=== PATIENT | female | born 1945 | race Caucasian/White ===

== ENCOUNTER 2018-01-05 12:12 | Observation (INO) ==
[2018-01-05 12:35] LABS: Apearance,Urine CLEAR (Clear); Bacteria,Urine Occasional /HPF (Few); Bilirubin,Urine Negative (Negative); Blood, Urine Negative (Negative); Glucose,Urine (UA) 150 mg/dL (Negative); Ketones,Urine 5 mg/dL (Negative); Nitrite,Urine Negative (Negative); Protein,Urine Negative; RBC,Urine <1 /HPF (0-4); Urine Color Yellow (Yellow); Urine Specific Gravity 1.014 (1.001-1.035); Urine Urobilinogen < 2.0 EU/DL (0.2-1.0); WBC,Urine <1 /HPF (0-6)
[2018-01-05 12:40] LABS: Basophils # 0.1 10*3/uL (0.0-0.2); Basophils % 1.3 % (0.0-0.8); Eosinophils # 0.2 10*3/uL (0.0-0.87); Hematocrit 39.2 VOL% (35.7-47.0); Immature Granulocytes % 0.6 %; Immature Granulocytes Absolute 0.03 #; Lymphocytes # 1.3 10*3/uL (1.4-4.0); Lymphocytes % 26.9 % (21.3-54.2); Mean Corpuscular HGB Conc 33.2 GM/DL (32-36); Mean Corpuscular Hemoglobin 29 PG (27-34); Mean Corpuscular Volume 86.3 FL (87-102); Monocytes # 0.3 10*3/uL (0.11-0.8); Monocytes % 6.5 % (1.7-12.7); Neutrophils # 2.9 10*3/uL (1.4-7.4); Neutrophils % 60.7 % (38.7-73.9); Platelet Count 174 T/CUMM (130-400); Red Blood Count 4.54 MC/CUMM (3.8-5.5); Red Cell Distribution Width 14.3 % (9.3-17.3); White Blood Count 4.8 T/CUMM (4-12)
[2018-01-05 12:49] LABS: PT Patient Result 10.9 SECS; Partial Thromboplastin Time 24.2 SECS (0-40)
[2018-01-05 12:53] LABS: Barbiturates Screen,Urine Negative (Negative); Benzodiazepines Screen,Urine Negative (Negative); Cannabinoid Screen,Urine Negative (Negative); Opiate Screen,Urine Negative (Negative); Phencyclidine Screen,Urine Negative (Negative)
[2018-01-05 13:04] LABS: Lactic Acid 3.4 MMOL/L (0.4-2.0)
[2018-01-05 13:10] LABS: Alanine Aminotransferase 36 U/L (13-56); Albumin 3.8 G/DL (3.4-5.0); Alkaline Phosphatase 56 U/L (45-117); Amylase 57 U/L (25-115); Aspartate Amino Transferase 27 U/L (0-37); Blood Urea Nitrogen 11 MG/DL (7-18); Calcium 8.9 MG/DL (8.5-10.1); Glucose 204 MG/DL (74-106); Osmolality,Calculated 281.5 MOS/KG (273-304); Potassium 4.2 MMOL/L (3.5-5.1); Sodium 139 MMOL/L (136-145); Total Protein 6.8 G/DL (6.4-8.3)
[2018-01-05] MEDS ORDERED: SODIUM CHLORIDE 0.9% 1,000 ML IV STA ×2 (13:31→14:28)
[2018-01-05] MEDS ORDERED: ORPHENADRINE 60 MG/2 ML VIAL IV STA (13:39)
[2018-01-05] MEDS ORDERED: ORPHENADRINE 60 MG/2 ML VIAL ONE (13:59)
[2018-01-05] MEDS ORDERED: MORPHINE 2 MG/1 ML SYRINGE IV STA (14:25)
[2018-01-05] MEDS ORDERED: diphenhydrAMINE 50 MG/1 ML VIAL IV STA (14:27)
[2018-01-05] MEDS ORDERED: diphenhydrAMINE 50 MG/1 ML VIAL ONE (14:37)
[2018-01-05] MEDS ORDERED: MORPHINE 4 MG/1 ML VIAL ONE (14:37)
[2018-01-05] MEDS ORDERED: DEXTROSE 50% 25 GM/50 ML VIAL IV PRN (19:18)
[2018-01-05] MEDS ORDERED: GLUCAGON 1 MG VIAL IM PRN (19:18)
[2018-01-05] MEDS ORDERED: ONDANSETRON 4 MG/2 ML VIAL IV PRN (19:33)
[2018-01-05] MEDS ORDERED: ENOXAPARIN 40 MG/0.4 ML SYRINGE SUBCUT SCH (20:00)
[2018-01-05] MEDS: INSULIN REGULAR 100 UNIT/ML SUBCUT SCH (22:31)
[2018-01-05] MEDS ORDERED: ONDANSETRON ODT 4 MG TABLET PO PRN (22:42)
[2018-01-05] MEDS ORDERED: OMEGA 3 ACID ETHYL ESTERS 1 GM CAPSULE PO SCH (23:00)
[2018-01-05] MEDS ORDERED: QUEtiapine 100 MG TABLET PO SCH (23:00)
[2018-01-05] MEDS ORDERED: ATORVASTATIN 80 MG TABLET PO SCH (23:00)
[2018-01-05] MEDS ORDERED: MIRTAZAPINE 15 MG TABLET PO SCH (23:00)
[2018-01-06] MEDS: INSULIN REGULAR 100 UNIT/ML SUBCUT SCH ×2 (08:19→11:25)
[2018-01-06] MEDS ORDERED: CLOPIDOGREL 75 MG TABLET PO SCH (09:00)
[2018-01-06] MEDS ORDERED: clonazePAM 0.5 MG TABLET PO SCH (09:00)
[2018-01-06] MEDS ORDERED: FLUoxetine 20 MG CAPSULE PO SCH (09:00)
[2018-01-06] MEDS ORDERED: LISINOPRIL 20 MG TABLET PO SCH (09:00)
[2018-01-06] MEDS ORDERED: CARVEDILOL 25 MG TABLET PO SCH (09:00)
[2018-01-06] MEDS ORDERED: ASPIRIN EC 81 MG TABLET PO SCH (09:00)
[2018-01-06 11:20] VITALS: BP 103/52
== END 2018-01-06 15:47 | disposition home or self-care (01) ==
LOC: EDUNIT# → EDBD → N.EDINP 12:12 → N.ED 12:12 → N.EDINP 21:03 → N.3E 21:09
PROVIDERS: ADMIT Family Medicine; ATTEND Family Medicine

== ENCOUNTER 2020-03-30 16:00 | Observation (INO) ==
[2020-03-30] MEDS ORDERED: SODIUM CHLORIDE 0.9% 500 ML IV STA (16:37)
[2020-03-30] MEDS ORDERED: fentaNYL 100 MCG/2 ML VIAL IV STA (16:37)
[2020-03-30] MEDS ORDERED: ONDANSETRON 4 MG/2 ML VIAL IV STA (16:37)
[2020-03-30 17:13] LABS: Basophils # 0.1 10*3/uL (0.0-0.2); Basophils % 1.1 % (0.0-0.8); Eosinophils # 0.3 10*3/uL (0.0-0.87); Eosinophils % 4.8 % (0.00-10.9); Hematocrit 34.3 VOL% (35.7-47.0); Hemoglobin 10.5 GM/DL (12.0-16.0); Immature Granulocytes % 0.4 %; Immature Granulocytes Absolute 0.03 #; Lymphocytes # 1.4 10*3/uL (1.4-4.0); Lymphocytes % 19.2 % (21.3-54.2); Mean Corpuscular HGB Conc 30.6 GM/DL (32-36); Mean Corpuscular Volume 86.4 FL (87-102); Mean Platelet Volume 9.3 FL (9.6-12.0); Monocytes % 8.1 % (1.7-12.7); Neutrophils % 66.4 % (38.7-73.9); Platelet Count 185 T/CUMM (130-400); Red Blood Count 3.97 MC/CUMM (3.8-5.5); Red Cell Distribution Width 15.8 % (9.3-17.3)
[2020-03-30 17:27] LABS: Partial Thromboplastin Time 26.7 SECS (23.9-33.8)
[2020-03-30 17:33] LABS: Apearance,Urine CLEAR (Clear); Bilirubin,Urine Negative (Negative); Blood, Urine Negative (Negative); Glucose,Urine (UA) Negative (Negative); Ketones,Urine Negative (Negative); Nitrite,Urine Negative (Negative); Protein,Urine Negative; RBC,Urine 4 /HPF (0-4); Squamous Epithelial Cell,Urine Occasional /HPF (0-10); Urine Color Yellow (Yellow); Urine Specific Gravity 1.011 (1.001-1.035); Urine Urobilinogen < 2.0 EU/DL (0.2-1.0); WBC,Urine 1 /HPF (0-6)
[2020-03-30 17:36] LABS: Albumin 3.4 G/DL (3.4-5.0); Bilirubin,Total 0.7 MG/DL (0.2-1.0); Calcium 8.4 MG/DL (8.5-10.1); Osmolality,Calculated 277.5 MOS/KG (273-304)
[2020-03-30] MEDS ORDERED: GLUCAGON 1 MG VIAL IM PRN (19:40)
[2020-03-30] MEDS ORDERED: DEXTROSE 50% 25 GM/50 ML VIAL IV PRN (19:40)
[2020-03-30] MEDS ORDERED: ONDANSETRON 4 MG/2 ML VIAL IV PRN (19:40)
[2020-03-30] MEDS: ATORVASTATIN 80 MG TABLET PO SCH (22:17)
[2020-03-30] MEDS: MIRTAZAPINE 15 MG TABLET PO SCH (22:17)
[2020-03-30] MEDS: clonazePAM 0.5 MG TABLET PO SCH (22:17)
[2020-03-30] MEDS: QUEtiapine 100 MG TABLET PO SCH (22:17)
[2020-03-30] MEDS: INSULIN REGULAR 100 UNIT/ML SUBCUT SCH (22:35)
[2020-03-30] MEDS: metFORMIN 500 MG TABLET PO SCH (22:35)
[2020-03-30] MEDS: INSULIN GLARGINE 100 UNIT/ML SUBCUT SCH (22:35)
[2020-03-30] MEDS: DEXTROSE 5% NACL 0.45% 1,000 ML IV SCH (22:36)
[2020-03-30] MEDS: fentaNYL 100 MCG/2 ML VIAL IV PRN (23:10)
[2020-03-31] MEDS: fentaNYL 100 MCG/2 ML VIAL IV PRN ×3 (04:14→18:42)
[2020-03-31] MEDS: INSULIN REGULAR 100 UNIT/ML SUBCUT SCH ×4 (09:08→21:42)
[2020-03-31] MEDS: buPROPion XL 150 MG TABLET PO SCH (09:12)
[2020-03-31] MEDS: metFORMIN 500 MG TABLET PO SCH ×2 (09:12→20:59)
[2020-03-31] MEDS: clonazePAM 0.5 MG TABLET PO SCH ×2 (09:12→21:00)
[2020-03-31] MEDS: CLOPIDOGREL 75 MG TABLET PO SCH (09:13)
[2020-03-31] MEDS: FLUoxetine 20 MG CAPSULE PO SCH (09:13)
[2020-03-31] MEDS: PANTOPRAZOLE 40 MG TABLET PO SCH (09:13)
[2020-03-31] MEDS ORDERED: ALBUTEROL/IPRATROPIUM 3 ML NEB RESP TX PRN (12:17)
[2020-03-31] MEDS: ALBUTEROL/IPRATROPIUM 3 ML NEB RESP TX SCH ×2 (12:52→18:57)
[2020-03-31] MEDS: GABAPENTIN 300 MG CAPSULE PO SCH ×2 (16:02→20:58)
[2020-03-31] MEDS: MAGNESIUM HYDROXIDE SUSP 30 ML UDCUP PO PRN (16:02)
[2020-03-31] MEDS: DEXTROSE 5% NACL 0.45% 1,000 ML IV SCH (17:10)
[2020-03-31] MEDS: ATORVASTATIN 80 MG TABLET PO SCH (20:58)
[2020-03-31] MEDS: MIRTAZAPINE 15 MG TABLET PO SCH (20:59)
[2020-03-31] MEDS: QUEtiapine 100 MG TABLET PO SCH (20:59)
[2020-03-31] MEDS: INSULIN GLARGINE 100 UNIT/ML SUBCUT SCH (21:00)
[2020-04-01] MEDS: ALBUTEROL/IPRATROPIUM 3 ML NEB RESP TX SCH ×4 (00:40→19:53)
[2020-04-01] MEDS: INSULIN REGULAR 100 UNIT/ML SUBCUT SCH ×4 (08:54→20:17)
[2020-04-01] MEDS: oxyCODONE/ACETAMINOPHEN 5-325 MG TABLET PO PRN ×2 (08:57→14:24)
[2020-04-01] MEDS: clonazePAM 0.5 MG TABLET PO SCH ×2 (08:58→20:28)
[2020-04-01] MEDS: metFORMIN 500 MG TABLET PO SCH ×2 (08:58→20:28)
[2020-04-01] MEDS: GABAPENTIN 300 MG CAPSULE PO SCH ×3 (08:58→20:28)
[2020-04-01] MEDS: buPROPion XL 150 MG TABLET PO SCH (08:59)
[2020-04-01] MEDS: CLOPIDOGREL 75 MG TABLET PO SCH (08:59)
[2020-04-01] MEDS: PANTOPRAZOLE 40 MG TABLET PO SCH (08:59)
[2020-04-01] MEDS: FLUoxetine 20 MG CAPSULE PO SCH (08:59)
[2020-04-01] MEDS: fentaNYL 100 MCG/2 ML VIAL IV PRN (18:50)
[2020-04-01] MEDS: INSULIN GLARGINE 100 UNIT/ML SUBCUT SCH (20:18)
[2020-04-01] MEDS: MIRTAZAPINE 15 MG TABLET PO SCH (20:28)
[2020-04-01] MEDS: ATORVASTATIN 80 MG TABLET PO SCH (20:28)
[2020-04-01] MEDS: QUEtiapine 100 MG TABLET PO SCH (20:28)
[2020-04-02] MEDS: ALBUTEROL/IPRATROPIUM 3 ML NEB RESP TX SCH ×3 (00:17→13:50)
[2020-04-02] MEDS: INSULIN REGULAR 100 UNIT/ML SUBCUT SCH ×2 (07:14→12:07)
[2020-04-02] MEDS: fentaNYL 100 MCG/2 ML VIAL IV PRN (08:20)
[2020-04-02] MEDS: metFORMIN 500 MG TABLET PO SCH (09:29)
[2020-04-02] MEDS: clonazePAM 0.5 MG TABLET PO SCH (09:29)
[2020-04-02] MEDS: GABAPENTIN 300 MG CAPSULE PO SCH (09:30)
[2020-04-02] MEDS: PANTOPRAZOLE 40 MG TABLET PO SCH (09:30)
[2020-04-02] MEDS: FLUoxetine 20 MG CAPSULE PO SCH (09:30)
[2020-04-02] MEDS: CLOPIDOGREL 75 MG TABLET PO SCH (09:30)
[2020-04-02] MEDS: buPROPion XL 150 MG TABLET PO SCH (09:31)
[2020-04-02] MEDS: MAGNESIUM HYDROXIDE SUSP 30 ML UDCUP PO PRN (12:07)
[2020-04-02] MEDS ORDERED: ASPIRIN CHEW 81 MG TABLET PO ONE (13:15)
[2020-04-02] MEDS ORDERED: NITROGLYCERIN SL 0.4 MG TABLET SL PRN (13:15)
[2020-04-02] MEDS: oxyCODONE/ACETAMINOPHEN 5-325 MG TABLET PO PRN (13:26)
[2020-04-02 13:34] LABS: Basophils # 0.1 10*3/uL (0.0-0.2); Eosinophils # 0.3 10*3/uL (0.0-0.87); Eosinophils % 5.7 % (0.00-10.9); Hematocrit 31.6 VOL% (35.7-47.0); Hemoglobin 9.9 GM/DL (12.0-16.0); Immature Granulocytes % 0.8 %; Immature Granulocytes Absolute 0.04 #; Lymphocytes # 1.5 10*3/uL (1.4-4.0); Lymphocytes % 29.4 % (21.3-54.2); Mean Corpuscular HGB Conc 31.3 GM/DL (32-36); Mean Corpuscular Volume 86.3 FL (87-102); Mean Platelet Volume 8.6 FL (9.6-12.0); Monocytes % 7.6 % (1.7-12.7); Neutrophils % 55.5 % (38.7-73.9); Platelet Count 204 T/CUMM (130-400); Red Blood Count 3.66 MC/CUMM (3.8-5.5); Red Cell Distribution Width 16.1 % (9.3-17.3); White Blood Count 5.1 T/CUMM (4-12)
[2020-04-02 13:48] LABS: Calcium 8.3 MG/DL (8.5-10.1); Osmolality,Calculated 278.3 MOS/KG (273-304)
[2020-04-02 14:45] VITALS: BP 126/56
== END 2020-04-02 14:37 | disposition swing bed (61) ==
LOC: N.ED 16:00 → N.EDINP 16:00 → N.3E 20:43
PROVIDERS: ADMIT Surgery; ATTEND Surgery

== ENCOUNTER 2022-10-25 22:05 | Inpatient (IN) ==
[2022-10-25] MEDS ORDERED: MORPHINE 2 MG/1 ML SYRINGE IV STA (22:24)
[2022-10-25] MEDS ORDERED: ASPIRIN 325 MG TABLET PO STA (22:24)
[2022-10-25] MEDS ORDERED: NITROGLYCERIN 2% OINT 1 INCH/GM PACK TOP STA (22:24)
[2022-10-25] MEDS ORDERED: ONDANSETRON 4 MG/2 ML VIAL IV STA (22:24)
[2022-10-25 22:28] LABS: Basophils # 0.1 10*3/uL (0.0-0.2); Basophils % 0.7 % (0.0-0.8); Eosinophils # 0.2 10*3/uL (0.0-0.87); Hematocrit 30.9 VOL% (35.7-47.0); Hemoglobin 9.4 GM/DL (12.0-16.0); Immature Granulocytes % 0.6 %; Immature Granulocytes Absolute 0.04 #; Lymphocytes # 1.3 10*3/uL (1.4-4.0); Lymphocytes % 18.4 % (21.3-54.2); Mean Corpuscular HGB Conc 30.4 GM/DL (32-36); Mean Corpuscular Volume 79.8 FL (87-102); Mean Platelet Volume 9.3 FL (9.6-12.0); Monocytes # 0.5 10*3/uL (0.11-0.8); Monocytes % 7.7 % (1.7-12.7); Neutrophils % 69.6 % (38.7-73.9); Platelet Count 185 T/CUMM (130-400); Red Blood Count 3.87 MC/CUMM (3.8-5.5); Red Cell Distribution Width 18.9 % (9.3-17.3)
[2022-10-25 22:40] LABS: PT Patient Result 11.1 SECS (10.1-12.1); Partial Thromboplastin Time 23.8 SECS (23.7-32.9)
[2022-10-25 22:50] LABS: Albumin 3.4 G/DL (3.4-5.0); Bilirubin,Total 0.5 MG/DL (0.20-1.00); Calcium 8.7 MG/DL (8.5-10.1); Osmolality,Calculated 285.5 MOS/KG (273-304); Potassium 4.3 MMOL/L (3.5-5.1); Total Protein 6.7 G/DL (6.4-8.2)
[2022-10-25] MEDS ORDERED: MAGNESIUM SULF RIDER 2 GM/50 ML PREMIX IV STA (22:57)
[2022-10-25] MEDS ORDERED: FUROSEMIDE 40 MG/4 ML VIAL IV STA (22:59)
[2022-10-26] MEDS ORDERED: ONDANSETRON 4 MG/2 ML VIAL IV PRN (00:44)
[2022-10-26] MEDS ORDERED: hydrALAZINE 20 MG/1 ML VIAL IV PRN (00:44)
[2022-10-26] MEDS ORDERED: NICOTINE 21 MG/24 HR PATCH TRANSDERM PRN (00:44)
[2022-10-26] MEDS ORDERED: guaiFENesin/DM ER 600-30 MG TABLET PO PRN (00:44)
[2022-10-26] MEDS ORDERED: diphenhydrAMINE CAP 25 MG CAPSULE PO PRN (00:44)
[2022-10-26] MEDS ORDERED: ALBUTEROL/IPRATROPIUM 3 ML NEB RESP TX PRN (00:44)
[2022-10-26] MEDS ORDERED: ENOXAPARIN 60 MG/0.6 ML SYRINGE SUBCUT STA (00:49)
[2022-10-26] MEDS ORDERED: NITROGLYCERIN SL 0.4 MG TABLET SL PRN (01:09)
[2022-10-26] MEDS: MORPHINE 2 MG/1 ML SYRINGE IV PRN ×4 (01:42→18:06)
[2022-10-26 06:25] LABS: Basophils % 0.5 % (0.0-0.8); Eosinophils # 0.1 10*3/uL (0.0-0.87); Eosinophils % 2.3 % (0.00-10.9); Hematocrit 28.1 VOL% (35.7-47.0); Hemoglobin 8.8 GM/DL (12.0-16.0); Immature Granulocytes % 0.5 %; Immature Granulocytes Absolute 0.03 #; Lymphocytes # 1.7 10*3/uL (1.4-4.0); Lymphocytes % 27.1 % (21.3-54.2); Mean Corpuscular HGB Conc 31.3 GM/DL (32-36); Mean Corpuscular Volume 78.7 FL (87-102); Mean Platelet Volume 9.7 FL (9.6-12.0); Monocytes # 0.5 10*3/uL (0.11-0.8); Monocytes % 8.8 % (1.7-12.7); Neutrophils % 60.8 % (38.7-73.9); Platelet Count 161 T/CUMM (130-400); Red Blood Count 3.57 MC/CUMM (3.8-5.5); Red Cell Distribution Width 18.6 % (9.3-17.3); White Blood Count 6.2 T/CUMM (4-12)
[2022-10-26 06:52] LABS: Calcium 8.6 MG/DL (8.5-10.1); Osmolality,Calculated 282.3 MOS/KG (273-304); Potassium 4.5 MMOL/L (3.5-5.1)
[2022-10-26] MEDS ORDERED: MAGNESIUM SULF RIDER 2 GM/50 ML PREMIX IV ONE (07:38)
[2022-10-26] MEDS ORDERED: ENOXAPARIN 80 MG/0.8 ML SYRINGE SUBCUT ONE (07:40)
[2022-10-26] MEDS ORDERED: DIAZEPAM 5 MG TABLET PO ONE (07:44)
[2022-10-26] MEDS ORDERED: diphenhydrAMINE CAP 50 MG CAPSULE PO ONE (07:44)
[2022-10-26] MEDS ORDERED: NITROGLYCERIN 2% OINT 1 INCH/GM PACK TOP SCH (08:00)
[2022-10-26] MEDS: FUROSEMIDE 20 MG/2 ML VIAL IV SCH (08:13)
[2022-10-26] MEDS: MAGNESIUM CHLORIDE 64 MG TABLET PO SCH ×2 (08:15→20:04)
[2022-10-26] MEDS: CLOPIDOGREL 75 MG TABLET PO SCH (08:15)
[2022-10-26] MEDS: ROSUVASTATIN 20 MG TABLET PO SCH (08:15)
[2022-10-26] MEDS: carvediloL 25 MG TABLET PO SCH ×2 (08:16→20:05)
[2022-10-26] MEDS: ASPIRIN EC 81 MG TABLET PO SCH (08:16)
[2022-10-26] MEDS: PANTOPRAZOLE 40 MG TABLET PO SCH (08:16)
[2022-10-26] MEDS: buPROPion XL 150 MG TABLET PO SCH (08:16)
[2022-10-26] MEDS: FLUoxetine 20 MG CAPSULE PO SCH (08:17)
[2022-10-26] MEDS: INSULIN LISPRO 100 UNIT/ML SUBCUT SCH ×4 (08:35→20:04)
[2022-10-26] MEDS ORDERED: TIROFIBAN 0 MCG in PREMIX 1 EACH IV ONE (08:56)
[2022-10-26] MEDS ORDERED: NITROGLYCERIN DRIP 50 MG/250 ML BOTTLE IV PRN (08:59)
[2022-10-26] MEDS ORDERED: TIROFIBAN 5,000 MCG/100 ML PREMIX IV SCH (09:00)
[2022-10-26] MEDS: TIROFIBAN IV ONE ×2 (09:12→10:10)
[2022-10-26 10:01] LABS: % Iron Saturation 6.1 % (18-50)
[2022-10-26] MEDS: SODIUM CHLORIDE 0.9% 1,000 ML IV SCH ×3 (10:03→23:08)
[2022-10-26] MEDS ORDERED: MIDAZOLAM 2 MG/2 ML VIAL ONE (13:45)
[2022-10-26] MEDS ORDERED: HYDROmorphone 1 MG/1 ML SYRINGE ONE (13:45)
[2022-10-26] MEDS ORDERED: fentaNYL 100 MCG/2 ML VIAL ONE (14:05)
[2022-10-26] MEDS ORDERED: TICAGRELOR 90 MG TABLET ONE (14:32)
[2022-10-26] MEDS: diphenhydrAMINE CAP 25 MG CAPSULE PO PRN ×2 (17:13→20:05)
[2022-10-26] MEDS: ZALEPLON 5 MG CAPSULE PO PRN (20:04)
[2022-10-26] MEDS: QUEtiapine 100 MG TABLET PO SCH (20:04)
[2022-10-26] MEDS: ACETAMINOPHEN 325 MG TABLET PO PRN (20:05)
[2022-10-26] MEDS: MIRTAZAPINE 15 MG TABLET PO SCH (20:05)
[2022-10-27 05:05] LABS: Basophils % 0.5 % (0.0-0.8); Eosinophils # 0.3 10*3/uL (0.0-0.87); Eosinophils % 4.6 % (0.00-10.9); Hematocrit 29.2 VOL% (35.7-47.0); Hemoglobin 8.9 GM/DL (12.0-16.0); Immature Granulocytes % 0.5 %; Immature Granulocytes Absolute 0.03 #; Lymphocytes # 1.4 10*3/uL (1.4-4.0); Lymphocytes % 21.9 % (21.3-54.2); Mean Corpuscular HGB Conc 30.5 GM/DL (32-36); Mean Corpuscular Volume 79.3 FL (87-102); Mean Platelet Volume 9.5 FL (9.6-12.0); Monocytes # 0.7 10*3/uL (0.11-0.8); Monocytes % 10.6 % (1.7-12.7); Neutrophils % 61.9 % (38.7-73.9); Platelet Count 161 T/CUMM (130-400); Red Blood Count 3.68 MC/CUMM (3.8-5.5); Red Cell Distribution Width 18.5 % (9.3-17.3); White Blood Count 6.5 T/CUMM (4-12)
[2022-10-27 05:23] LABS: Osmolality,Calculated 274.7 MOS/KG (273-304); Potassium 3.8 MMOL/L (3.5-5.1)
[2022-10-27 05:33] LABS: Risk Ratio 2.15; VLDL Cholesterol 31.8 MG/DL
[2022-10-27] MEDS: INSULIN LISPRO 100 UNIT/ML SUBCUT SCH ×4 (07:40→20:12)
[2022-10-27] MEDS: ACETAMINOPHEN 325 MG TABLET PO PRN (08:50)
[2022-10-27] MEDS: ASPIRIN EC 81 MG TABLET PO SCH (08:50)
[2022-10-27] MEDS: FUROSEMIDE 20 MG/2 ML VIAL IV SCH (08:50)
[2022-10-27] MEDS: ROSUVASTATIN 20 MG TABLET PO SCH (08:50)
[2022-10-27] MEDS: PANTOPRAZOLE 40 MG TABLET PO SCH (08:50)
[2022-10-27] MEDS: FLUoxetine 20 MG CAPSULE PO SCH (08:50)
[2022-10-27] MEDS: carvediloL 25 MG TABLET PO SCH ×2 (08:50→20:11)
[2022-10-27] MEDS: CLOPIDOGREL 75 MG TABLET PO SCH (08:50)
[2022-10-27] MEDS: buPROPion XL 150 MG TABLET PO SCH (08:50)
[2022-10-27] MEDS: MAGNESIUM CHLORIDE 64 MG TABLET PO SCH ×2 (09:15→20:12)
[2022-10-27] MEDS: FERROUS SULFATE 325 MG TABLET PO SCH ×2 (09:30→20:10)
[2022-10-27] MEDS: DAPAGLIFLOZIN 10 MG TABLET PO SCH (09:40)
[2022-10-27] MEDS: SACUBITRIL/VALSARTAN 49-51 MG TABLET PO SCH ×2 (09:40→20:11)
[2022-10-27] MEDS: RANOLAZINE 500 MG TABLET PO SCH ×2 (11:30→20:12)
[2022-10-27] MEDS ORDERED: HYDROCORTISONE 1% CREAM 28 GM TUBE TOP PRN (12:33)
[2022-10-27] MEDS: MIRTAZAPINE 15 MG TABLET PO SCH (20:10)
[2022-10-27] MEDS: QUEtiapine 100 MG TABLET PO SCH (20:11)
[2022-10-27] MEDS: ZALEPLON 5 MG CAPSULE PO PRN (20:12)
[2022-10-28 04:45] LABS: Basophils % 0.6 % (0.0-0.8); Eosinophils # 0.2 10*3/uL (0.0-0.87); Eosinophils % 3.8 % (0.00-10.9); Hematocrit 27.9 VOL% (35.7-47.0); Hemoglobin 8.5 GM/DL (12.0-16.0); Immature Granulocytes % 0.4 %; Immature Granulocytes Absolute 0.02 #; Lymphocytes # 1.4 10*3/uL (1.4-4.0); Lymphocytes % 29.1 % (21.3-54.2); Mean Corpuscular HGB Conc 30.5 GM/DL (32-36); Mean Corpuscular Volume 78.6 FL (87-102); Mean Platelet Volume 9.3 FL (9.6-12.0); Monocytes # 0.6 10*3/uL (0.11-0.8); Monocytes % 11.8 % (1.7-12.7); Neutrophils % 54.3 % (38.7-73.9); Platelet Count 152 T/CUMM (130-400); Red Blood Count 3.55 MC/CUMM (3.8-5.5); Red Cell Distribution Width 18.6 % (9.3-17.3); White Blood Count 4.7 T/CUMM (4-12)
[2022-10-28 04:59] LABS: Calcium 8.4 MG/DL (8.5-10.1); Osmolality,Calculated 284.1 MOS/KG (273-304); Potassium 3.9 MMOL/L (3.5-5.1)
[2022-10-28] MEDS: INSULIN LISPRO 100 UNIT/ML SUBCUT SCH ×4 (07:35→21:10)
[2022-10-28] MEDS: SACUBITRIL/VALSARTAN 49-51 MG TABLET PO SCH ×2 (10:10→21:10)
[2022-10-28] MEDS: carvediloL 25 MG TABLET PO SCH ×2 (10:10→21:10)
[2022-10-28] MEDS: FUROSEMIDE 20 MG/2 ML VIAL IV SCH (10:10)
[2022-10-28] MEDS: FERROUS SULFATE 325 MG TABLET PO SCH ×2 (10:10→21:10)
[2022-10-28] MEDS: RANOLAZINE 500 MG TABLET PO SCH ×2 (10:10→21:10)
[2022-10-28] MEDS: ROSUVASTATIN 20 MG TABLET PO SCH (11:35)
[2022-10-28] MEDS: CLOPIDOGREL 75 MG TABLET PO SCH (11:35)
[2022-10-28] MEDS: FLUoxetine 20 MG CAPSULE PO SCH (11:35)
[2022-10-28] MEDS: DAPAGLIFLOZIN 10 MG TABLET PO SCH (11:35)
[2022-10-28] MEDS: ASPIRIN EC 81 MG TABLET PO SCH (11:35)
[2022-10-28] MEDS: PANTOPRAZOLE 40 MG TABLET PO SCH (11:35)
[2022-10-28] MEDS: buPROPion XL 150 MG TABLET PO SCH (11:35)
[2022-10-28] MEDS: MAGNESIUM CHLORIDE 64 MG TABLET PO SCH ×2 (12:10→21:10)
[2022-10-28] MEDS: MORPHINE 2 MG/1 ML SYRINGE IV PRN (12:30)
[2022-10-28] MEDS ORDERED: MAGNESIUM SULF RIDER 2 GM/50 ML PREMIX IV ONE (12:42)
[2022-10-28 17:41] VITALS: BP 93/42
[2022-10-28] MEDS: MIRTAZAPINE 15 MG TABLET PO SCH (21:10)
[2022-10-28] MEDS: QUEtiapine 100 MG TABLET PO SCH (21:10)
[2022-10-29] MEDS: MORPHINE 2 MG/1 ML SYRINGE IV PRN (02:40)
[2022-10-29 04:46] LABS: Basophils % 0.9 % (0.0-0.8); Eosinophils # 0.2 10*3/uL (0.0-0.87); Eosinophils % 4.8 % (0.00-10.9); Hematocrit 28.3 VOL% (35.7-47.0); Hemoglobin 8.8 GM/DL (12.0-16.0); Immature Granulocytes % 0.4 %; Immature Granulocytes Absolute 0.02 #; Lymphocytes # 1.3 10*3/uL (1.4-4.0); Lymphocytes % 27.9 % (21.3-54.2); Mean Corpuscular HGB Conc 31.1 GM/DL (32-36); Mean Corpuscular Volume 77.5 FL (87-102); Mean Platelet Volume 9.5 FL (9.6-12.0); Monocytes # 0.5 10*3/uL (0.11-0.8); Monocytes % 11.4 % (1.7-12.7); Neutrophils % 54.6 % (38.7-73.9); Platelet Count 168 T/CUMM (130-400); Red Blood Count 3.65 MC/CUMM (3.8-5.5); Red Cell Distribution Width 18.6 % (9.3-17.3); White Blood Count 4.58 T/CUMM (4-12)
[2022-10-29 05:12] LABS: Calcium 8.4 MG/DL (8.5-10.1); Osmolality,Calculated 285.7 MOS/KG (273-304); Potassium 3.7 MMOL/L (3.5-5.1)
[2022-10-29] MEDS: RANOLAZINE 500 MG TABLET PO SCH ×2 (08:24→20:36)
[2022-10-29] MEDS: DAPAGLIFLOZIN 10 MG TABLET PO SCH (08:24)
[2022-10-29] MEDS: ROSUVASTATIN 20 MG TABLET PO SCH (08:24)
[2022-10-29] MEDS: MAGNESIUM CHLORIDE 64 MG TABLET PO SCH ×2 (08:24→20:35)
[2022-10-29] MEDS: FLUoxetine 20 MG CAPSULE PO SCH (08:24)
[2022-10-29] MEDS: FERROUS SULFATE 325 MG TABLET PO SCH ×2 (08:24→20:36)
[2022-10-29] MEDS: PANTOPRAZOLE 40 MG TABLET PO SCH (08:24)
[2022-10-29] MEDS: CLOPIDOGREL 75 MG TABLET PO SCH (08:24)
[2022-10-29] MEDS: buPROPion XL 150 MG TABLET PO SCH (08:24)
[2022-10-29] MEDS: ASPIRIN EC 81 MG TABLET PO SCH (08:24)
[2022-10-29] MEDS: INSULIN LISPRO 100 UNIT/ML SUBCUT SCH ×4 (08:24→20:38)
[2022-10-29] MEDS: carvediloL 25 MG TABLET PO SCH ×2 (09:52→20:36)
[2022-10-29] MEDS: SACUBITRIL/VALSARTAN 49-51 MG TABLET PO SCH ×2 (09:52→20:35)
[2022-10-29] MEDS: SPIRONOLACTONE 25 MG TABLET PO SCH (09:52)
[2022-10-29] MEDS: QUEtiapine 100 MG TABLET PO SCH (20:36)
[2022-10-29] MEDS: MIRTAZAPINE 15 MG TABLET PO SCH (20:36)
[2022-10-30 04:55] LABS: Eosinophils # 0.2 10*3/uL (0.0-0.87); Eosinophils % 4.4 % (0.00-10.9); Hematocrit 27.3 VOL% (35.7-47.0); Hemoglobin 8.4 GM/DL (12.0-16.0); Immature Granulocytes % 0.5 %; Immature Granulocytes Absolute 0.02 #; Lymphocytes # 1.4 10*3/uL (1.4-4.0); Lymphocytes % 35.1 % (21.3-54.2); Mean Corpuscular HGB Conc 30.8 GM/DL (32-36); Mean Corpuscular Volume 77.6 FL (87-102); Mean Platelet Volume 9.3 FL (9.6-12.0); Monocytes # 0.5 10*3/uL (0.11-0.8); Platelet Count 163 T/CUMM (130-400); Red Blood Count 3.52 MC/CUMM (3.8-5.5); Red Cell Distribution Width 18.8 % (9.3-17.3)
[2022-10-30 05:22] LABS: Calcium 8.5 MG/DL (8.5-10.1); Osmolality,Calculated 282.5 MOS/KG (273-304); Potassium 3.8 MMOL/L (3.5-5.1)
[2022-10-30] MEDS: INSULIN LISPRO 100 UNIT/ML SUBCUT SCH (08:05)
[2022-10-30] MEDS ORDERED: carvediloL 6.25 MG TABLET PO SCH (09:00)
[2022-10-30] MEDS: FLUoxetine 20 MG CAPSULE PO SCH (09:54)
[2022-10-30] MEDS: ROSUVASTATIN 20 MG TABLET PO SCH (09:54)
[2022-10-30] MEDS: MAGNESIUM CHLORIDE 64 MG TABLET PO SCH (09:54)
[2022-10-30] MEDS: PANTOPRAZOLE 40 MG TABLET PO SCH (09:54)
[2022-10-30] MEDS: SPIRONOLACTONE 25 MG TABLET PO SCH (09:55)
[2022-10-30] MEDS: DAPAGLIFLOZIN 10 MG TABLET PO SCH (09:55)
[2022-10-30] MEDS: RANOLAZINE 500 MG TABLET PO SCH (09:55)
[2022-10-30] MEDS: SACUBITRIL/VALSARTAN 49-51 MG TABLET PO SCH (09:55)
[2022-10-30] MEDS: CLOPIDOGREL 75 MG TABLET PO SCH (09:55)
[2022-10-30] MEDS: ASPIRIN EC 81 MG TABLET PO SCH (09:55)
[2022-10-30] MEDS: buPROPion XL 150 MG TABLET PO SCH (09:55)
[2022-10-30] MEDS: FERROUS SULFATE 325 MG TABLET PO SCH (09:55)
[2022-10-30] MEDS: carvediloL 25 MG TABLET PO SCH (09:56)
== END 2022-10-30 14:00 | disposition home or self-care (01) | DRG 246 ==
LOC: N.EDINP 22:05 → N.ED 22:05 → SUATTDRO 10-26 00:44 → N.EDINP 10-26 02:25 → N.2W 10-26 02:42 → SUATTDRO 10-26 07:37 → N.ICU 10-26 09:27
PROVIDERS: ADMIT Internal Medicine; ATTEND Hospitalist